=== PATIENT | female | born 1975 | race Caucasian/White ===

== ENCOUNTER 2021-07-10 16:56 | Emergency (ER) | payer OTHER ==
[~2021-07-10] VITALS: Ht 264.2 cm; Wt 77.1 kg
[2021-07-10] MEDS ORDERED: CYCLOBENZAPRINE HCL 10 MG TABLET PO ONE (17:45)
[2021-07-10] MEDS ORDERED: HYDROCODONE/APAP 5-325MG TABLET PO ONE (17:45)
[2021-07-10] MEDS ORDERED: KETOROLAC TROMETHAMINE 15 MG INJ IM ONE (17:45)
[2021-07-10] MEDS ORDERED: CYCLOBENZAPRINE HCL 10 MG TABLET ONE (17:52)
[2021-07-10] MEDS ORDERED: HYDROCODONE/APAP 5-325MG TABLET ONE (17:52)
[2021-07-10] MEDS ORDERED: KETOROLAC TROMETHAMINE 15 MG INJ ONE (17:52)
[2021-07-10] MEDS ORDERED: NAPR-1192 PO (18:14)
[2021-07-10] MEDS ORDERED: CYCL5TAB PO (18:14)
[2021-07-10] MEDS ORDERED: OXYC5CAP18 PO (18:14)
--- NOTE | 2021-07-10 18:35 | NUR ---
PT WAS EVALUATED BY DR NAVARRO. PT WAS D/C'd TO HOME. D/C INSTRUCTIONS GIVEN TO THE PT BY DR NAVARRO.
[2021-07-10 18:36] VITALS: BP 145/76
== END 2021-07-10 18:37 | disposition home or self-care (01) ==
LOC: ER 17:01
DX: M54.10 Radiculopathy, site unspecified (principal); M54.42 Lumbago with sciatica, left side; R03.0 Elevated blood-pressure reading, without diagnosis of hypertension; E78.00 Pure hypercholesterolemia, unspecified; E03.9 Hypothyroidism, unspecified
CPT/HCPCS: 96372; 99283; J1885; A4663